=== PATIENT | female | born 1995 | race Caucasian/White ===

== ENCOUNTER 2019-10-18 19:56 | Emergency (ER) | payer SELFPAY ==
[2019-10-18 19:59] VITALS: BP 140/67; PULSE 86; RESP 20; TEMP 36.7; O2SAT 100
--- NOTE | 2019-10-18 21:00 | PC.NURSE ---
pt states she has to leave due to her daughter being inconsolable w/ . pt informed to return w/ worsening symptoms/concerns.
== END 2019-10-18 21:00 | disposition left against medical advice (07) ==
DX: Z53.21 Procedure and treatment not carried out due to patient leaving prior to being seen by health care provider (principal)
CPT/HCPCS: 99199